=== PATIENT | male | born 1955 | race Caucasian/White ===

== ENCOUNTER 2017-05-10 09:30 | Outpatient (CLI) | payer OTHER ==
--- NOTE | 2017-05-10 14:57 | Diagnostic Imaging Report ---
TREY ETIENNE [facility] [id number] [facility] [address] [address] Report Submission Date: May 10, 2017 9:55:59 AM CDT Patient Study Name: SHMUEL RAMIREZ Date: May 10, 2017 9:36:13 AM CDT Modality Type: CR Gender: M Description: LOWER EXTREMITY : 59 Institution: [facility] Physician: TREY ETIENNE Examination: Plain film knee History: Knee discomfort Findings: 2 views of the knee demonstrates normal cortical margins. Minimal tibial spine and patellar spurring. No fracture. No dislocation. No joint effusion. No soft tissue irregularity. Impression: Mild degenerative changes. No acute osseous abnormality Electronically signed on May 10, 2017 9:55:59 AM CDT by: Theron VANG
== END 2017-05-10 09:31 ==
LOC: LAB 09:30
PROVIDERS: ATTEND Physician Assistant
DX: M25.561 Pain in right knee (principal)
CPT/HCPCS: 73560

== ENCOUNTER 2018-01-21 17:17 | Emergency (ER) | payer OTHER ==
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
[2018-01-21 17:42] VITALS: BP 135/83
== END 2018-01-21 18:26 | disposition short-term general hospital (02) ==
LOC: ED 17:17
DX: Z77.21 Contact with and (suspected) exposure to potentially hazardous body fluids (principal); Z57.9 Occupational exposure to unspecified risk factor; Y92.148 Other place in prison as the place of occurrence of the external cause
CPT/HCPCS: 99282

== ENCOUNTER 2019-05-03 10:40 | Outpatient (CLI) | payer OTHER ==
--- NOTE | 2019-05-07 18:08 | OP Clinic Progress Note ---
DATE OF VISIT: 05/03/2019 SUBJECTIVE: Arnoldo Sanabria is a 63-year-old male presenting to clinic for follow-up of bilateral plantar fasciitis. He was seen earlier this week in clinic and has been having severe pain in both heels that is present at times in the mornings and definitely at night. 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 The patient presented today for bilateral steroid injections to try and help knock down some of the pain that has been severe for him recently in both heels. He does not admit to any fevers, chills, nausea, vomiting, shortness of breath or chest pain. OBJECTIVE: Vitals: Temperature 98.7, heart rate 97, respiration rate 18, blood pressure 141/90. O2 saturation is 95% on room air. Vascular: 2+ DP and PT pulses, bilaterally. Capillary refill time is less than 3 seconds to the toes bilaterally. There is no edema noted, bilateral feet. Dermatologic: There is no ecchymosis, erythema or open lesions, skin lesions or hyperkeratosis noted, bilateral feet. Musculoskeletal: Pain on palpation is severe at the plantar medial calcaneal tubercle, bilateral feet, left more than right. There was also limited ankle range of motion as discussed in the previous note earlier this week, bilateral ankles. There were no other gross abnormalities noted bilaterally. Neurologic: Light touch sensation is intact to the toes, bilaterally. There is no numbness or burning or tingling. ASSESSMENT AND PLAN: 1. Plantar fasciitis, bilateral heels. 2. Gastrocnemius equinus, bilateral lower extremities. Consent was obtained after discussing risks and benefits including but not limited to bleeding and infection and steroid flare, and the patient has signed the consent and it was placed in the chart for bilateral plantar fascia injections with steroid. PROCEDURE #1: Steroid injection in the right heel plantar fascia origin was performed today. An alcohol swab was utilized to cleanse the plantar medial tubercle area of the right heel. An injection consisting of 1 mL of 2% lidocaine plain, 1 mL of 0.5% Marcaine plain, 0.5 mL of dexamethasone 4 mg/mL and 0.5 mL of Kenalog 40 mg/mL was injected into the plantar fascia region and calcaneal nerve branch region. This was performed and hemostasis achieved with pressure. A Band-Aid was applied. PROCEDURE #2: An identical procedure was performed in the left heel plantar fascia origin. The patient tolerated this procedure well also. The patient will get his [employer]et Superfeet inserts today and will use those and continue 3-4 times a day stretching for his calf muscles and we will plan on seeing him 1 month from now in the [facility] clinic for follow-up unless it is not doing well enough and he would like to do a repeat injection in a month from now. If that is the case he will call and set up here at that time and cancel the appointment in the [facility] clinic. Sophia Salas.P.M. (Dictated/Not Signed) Sandra Job#: [id number] MTDD
== END 2019-05-03 11:10 ==
LOC: POD 10:40
PROVIDERS: ATTEND Podiatrist Foot & Ankle Surgery
DX: M72.2 Plantar fascial fibromatosis (principal)
CPT/HCPCS: 20550; 99212; J1100; J2001; J3301; J3490; A4554